=== PATIENT | female | born 1940 | race Caucasian/White ===

== ENCOUNTER 2019-07-03 12:07 | Inpatient (IN) | payer MEDICARE, OTHER ==
[~2019-07-03] VITALS: Ht 154.9 cm; Wt 73.8 kg
[2019-07-06 15:31] VITALS: BP 120/74
== END 2019-07-06 18:05 | DRG 483 ==
LOC: ORIP 12:07 → EDSTATUS 14:00 → 4NOR 17:00 → 4EST 07-06 17:08 → 4NOR 07-06 17:11
PROVIDERS: ADMIT Orthopaedic Surgery; ATTEND Orthopaedic Surgery
PROC: 0RRJ00Z Replacement of Right Shoulder Joint with Reverse Ball and Socket Synthetic Substitute, Open Approach (ICD-10-PCS; principal; 2019-07-03)
PROC: 0LS30ZZ Reposition Right Upper Arm Tendon, Open Approach (ICD-10-PCS; 2019-07-03)
PROC: 0PSF04Z Reposition Right Humeral Shaft with Internal Fixation Device, Open Approach (ICD-10-PCS; 2019-07-03)
PROC: 3E0T3BZ Introduction of Anesthetic Agent into Peripheral Nerves and Plexi, Percutaneous Approach (ICD-10-PCS; 2019-07-03)
DX: S42.241A 4-part fracture of surgical neck of right humerus, initial encounter for closed fracture (principal); J96.91 Respiratory failure, unspecified with hypoxia; G70.01 Myasthenia gravis with (acute) exacerbation; G93.40 Encephalopathy, unspecified; F13.20 Sedative, hypnotic or anxiolytic dependence, uncomplicated; F11.20 Opioid dependence, uncomplicated; T88.59XA Other complications of anesthesia, initial encounter; Y83.8 Other surgical procedures as the cause of abnormal reaction of the patient, or of later complication, without mention of misadventure at the time of the procedure; Y79.8 Miscellaneous orthopedic devices associated with adverse incidents, not elsewhere classified; G70.00 Myasthenia gravis without (acute) exacerbation; D50.9 Iron deficiency anemia, unspecified; D72.829 Elevated white blood cell count, unspecified; E03.9 Hypothyroidism, unspecified; I44.7 Left bundle-branch block, unspecified; S30.1XXA Contusion of abdominal wall, initial encounter; W18.39XA Other fall on same level, initial encounter; F20.9 Schizophrenia, unspecified; G47.33 Obstructive sleep apnea (adult) (pediatric); G89.4 Chronic pain syndrome; I10 Essential (primary) hypertension; I25.10 Atherosclerotic heart disease of native coronary artery without angina pectoris; I25.2 Old myocardial infarction; Z79.82 Long term (current) use of aspirin; Z82.3 Family history of stroke; Z86.73 Personal history of transient ischemic attack (TIA), and cerebral infarction without residual deficits; Z91.19 Patient's noncompliance with other medical treatment and regimen; Z95.0 Presence of cardiac pacemaker; Z90.49 Acquired absence of other specified parts of digestive tract; Y93.89 Activity, other specified; Y92.89 Other specified places as the place of occurrence of the external cause
CPT/HCPCS: 36415; 80048; 80053; 82274; 82306; 82962; 83036; 83540; 83550; 85025; 93005; 93970; 94150; C1713; C1776; G0378; J0690; J1100; J1170; J2250; J2405; J2704; J3010; J0330; J2370; J3480; J7030; J7120; J7512

== ENCOUNTER 2020-10-23 11:42 | Day surgery (SDC) | payer MEDICARE, OTHER ==
[2020-10-22 12:18] LABS: ALBUMIN 3.1 g/dL (3.4-5.0); ANION GAP 5 mmol/L (5-15); CALCIUM 9.6 mg/dL (8.5-10.1); CHLORIDE 112 mmol/L (98-107); CREATININE 0.92 mg/dL (0.55-1.02)
[2020-10-22 12:21] LABS: ALANINE AMINOTRANSFERASE 9 U/L (12-78); ALKALINE PHOSPHATASE 72 U/L (45-117); BILIRUBIN,TOTAL 0.4 mg/dL (0.2-1.0); TOTAL PROTEIN 6.8 g/dL (6.4-8.2)
[~2020-10-23] VITALS: Ht 154.9 cm; Wt 66.5 kg
[~2020-10-23 11:42] MED LIST: ACET325T26 PO; ALPR0.5T7 PO; AMLO-150 PO; AMLO-335 PO; ARIP15TA3 PO; ASCO-96 PO; ASPI-496 PO; BENAZEPRIL; CALC-623 PO; CARV6.2512 PO; ESCI20TA PO; FERR-51 PO; HYDR-3246 PO; HYDR-826 PO; LEVO25TA2 PO; LOSA50TA14 PO; METO-95 PO; METO-99 PO; OMEP40CA42 PO; OXYC5CAP2 PO; PRED5TAB PO; PYRI60TA PO; UBID100C41 PO; VITAMIN B12 PO; VITAMIN E PO
[2020-10-23] MEDS ORDERED: CHLORHEXIDINE 15 ML UDC MM ONE (12:30)
[2020-10-23 12:40] VITALS: BP 138/64
[2020-10-23] MEDS ORDERED: LACTATED RINGERS 1,000 ML IV SCH (13:00)
[2020-10-23] MEDS ORDERED: ALBUTEROL INH (13:07)
[2020-10-23] MEDS ORDERED: FENTANYL PF 100 MCG/2ML ONE ×2 (15:42→17:05)
[2020-10-23] MEDS ORDERED: DEXAMETHASONE 4 MG/ML, 1ML ONE (15:45)
[2020-10-23] MEDS ORDERED: SUCCINYLCHOLINE 20 MG/ML, 10ML ONE (15:45)
[2020-10-23] MEDS ORDERED: ONDANSETRON 2MG/ML, 2ML ONE (15:45)
[2020-10-23] MEDS ORDERED: GLYCOPYRROLATE 0.2MG/1ML, 5ML ONE (15:45)
[2020-10-23] MEDS ORDERED: NEOSTIGMINE 1 MG/ML, 10ML ONE (15:45)
[2020-10-23] MEDS ORDERED: CEFAZOLIN 1,000 MG ONE (15:45)
[2020-10-23] MEDS ORDERED: PROPOFOL 10 MG/ML, 20ML ONE (15:45)
[2020-10-23] MEDS ORDERED: ROCURONIUM 10MG/ML,5ML ONE (15:45)
[2020-10-23] MEDS ORDERED: OXYcodone 5 MG/5 ML ORAL.SOL UDC ONE (16:56)
[2020-10-23] MEDS ORDERED: ACETAMINOPHEN 650 MG/20.3 ML UDC ONE (16:56)
[2020-10-23] MEDS ORDERED: OXYcodone 5 MG/5 ML ORAL.SOL UDC PO PRN (17:00)
[2020-10-23] MEDS ORDERED: PROMETHAZINE 25 MG/ML, 1ML IV PRN (17:00)
[2020-10-23] MEDS ORDERED: LABETALOL 5MG/ML, 20ML IV PRN (17:00)
[2020-10-23] MEDS ORDERED: hydrALAzine 20 MG/ML, 1ML IV PRN (17:00)
[2020-10-23] MEDS ORDERED: HYDROmorphone 2 MG/ML, 1ML IVPush PRN (17:00)
[2020-10-23] MEDS ORDERED: ALBUTEROL SULFATE 2.5 MG/3 ML NPPB PRN (17:00)
[2020-10-23] MEDS ORDERED: HALOPERIDOL 5 MG/ML IV PRN (17:00)
[2020-10-23] MEDS: FENTANYL PF 100 MCG/2ML IV PRN ×2 (17:05→17:26)
== END 2020-10-23 18:10 | disposition home or self-care (01) ==
LOC: OUT 11:42
PROVIDERS: ATTEND Orthopaedic Surgery
DX: S43.085A Other dislocation of left shoulder joint, initial encounter (principal); I10 Essential (primary) hypertension; I25.10 Atherosclerotic heart disease of native coronary artery without angina pectoris; I48.91 Unspecified atrial fibrillation; Z20.828 Contact with and (suspected) exposure to other viral communicable diseases; Z79.82 Long term (current) use of aspirin; Z79.890 Hormone replacement therapy; Z79.891 Long term (current) use of opiate analgesic; Z79.899 Other long term (current) drug therapy; Z87.891 Personal history of nicotine dependence; Z95.0 Presence of cardiac pacemaker; Z82.3 Family history of stroke; Z82.49 Family history of ischemic heart disease and other diseases of the circulatory system; X50.9XXA Other and unspecified overexertion or strenuous movements or postures, initial encounter; Y93.89 Activity, other specified; Y92.091 Bathroom in other non-institutional residence as the place of occurrence of the external cause; Y99.8 Other external cause status
CPT/HCPCS: 23655; 36415; 73030; 80053; 87635; 93005; J0330; J0690; J1100; J2405; J2704; J2710; J3010; J7120; 76000